=== PATIENT | female | born 1970 | race Asian ===

== ENCOUNTER 2019-11-13 11:49 | Emergency (ER) | payer OTHER ==
[~2019-11-13] VITALS: Ht 160 cm; Wt 74.8 kg
[2019-11-13 14:15] VITALS: BP 124/76; TEMP 97.9
== END 2019-11-13 14:35 | disposition home or self-care (01) ==
LOC: ED 11:49
DX: J10.1 Influenza due to other identified influenza virus with other respiratory manifestations (principal); R05 Cough
CPT/HCPCS: 87502; 87651; 99283

== ENCOUNTER 2020-11-24 12:03 | Emergency (ER) | payer OTHER ==
[~2020-11-24] VITALS: Ht 160 cm; Wt 74.8 kg
[2020-11-24 12:20] VITALS: TEMP 98.6
[2020-11-24 13:08] LABS: PLATELET COUNT 258 K/uL (152-353)
[2020-11-24 13:18] LABS: POTASSIUM 3.2 mmol/L (3.6-5.2)
[2020-11-24 14:50] VITALS: BP 153/93
== END 2020-11-24 14:50 | disposition home or self-care (01) ==
LOC: ED 12:03
PROVIDERS: Hospitalist
DX: U07.1 COVID-19 (principal); J06.9 Acute upper respiratory infection, unspecified; E87.6 Hypokalemia
CPT/HCPCS: 80053; 85027; 87502; 87651; 96374; 96375; 99284; J1100; J1642; J1885

== ENCOUNTER 2020-12-05 16:54 | Inpatient (IN) | payer OTHER ==
[~2020-12-05] VITALS: Ht 160 cm; Wt 71.9 kg
[2020-12-05] VITALS (7 sets, daily range): BP systolic 114–148; BP diastolic 68–88; TEMP 98.8–103.3; Ht 160 cm; Wt 71.9 kg
[2020-12-05 17:51] LABS: PLATELET COUNT 195 K/uL (152-353)
[2020-12-05 17:54] LABS: POTASSIUM 3.5 mmol/L (3.6-5.2)
--- NOTE | 2020-12-05 22:54 | NUR ---
PATIENT STATES SHE WAS TESTED AND HAD COVID APROX 2 WEEIKS AGO. I ASKED HER WHEN SHE STARTED FEELING "WORSE" AGAIN AND SHE REPLIED YESTERDAY (12/04/20). SHE REPOETED NAUSEA, FEVER , AND SYNCOPHY. THE PATIENT TODAY REPORTS JOINT PAIN ESPECALLY IN HER RT SHOLD AND REPORTS NO PREVIOUS INJURY THERE. THE PAIN ALSO REPORTS SHE HAS HAD SYNCOPAL EPISODES TO DAY AND NAUSEA AND FEVER. THE PATIENT WAS TREATED FOR FEVER IN THE ER AND THE PATIENT DENIES ANY NAUSEA NOW.
--- NOTE | 2020-12-05 23:03 | NUR ---
PATIENT STATES SHE DOESNT KNOW HER HOME MEDICATION BY HEART AND DOESNT HAVE A LIST BUT HER PHARMACY IS [facility] HERE IN [place]
--- NOTE | 2020-12-05 23:06 | NUR ---
PATIENT TEMP UPON HER ER VISIT WAS 103 BUT SHE RECIEVED 1000MG OF TYEANOL AND WHEN I DID HER ASSESMENT AT 1945 IT WAS 100.1. THE PATIETN WAS VERY LETHARGIC AT THIS PONT AND FALLING ASLEEP DURING THE ASSESMENT. I PREFORMED NEURO CHECKS AND SHE WAS WNL. I JUST CHECKED HER TEMP AGAIN AT 2200 AND THE PATIENT TEMP WAS 98.4. THE PATIENT IS STILL "SLEEPY' BUT MORE COHERANT.
[2020-12-06 03:55] VITALS: BP 117/79; TEMP 98.3
--- NOTE | 2020-12-06 04:39 | NUR ---
PATIENT HAS EXPRESSED HER "ANXITY HAS LESSENED AND SHE HAS BEEN ABLE TO SLEEP MUCH BETTER TONIGHT"
--- NOTE | 2020-12-06 05:46 | NUR ---
PATIENT GOWN WAS REPLACED, SHE SWEATED THE OTHER THROUGH PATIENT STATES," THIS IS THE BEST NIGHTS SLWWP IV HAD IN THREE DAYS"
--- NOTE | 2020-12-06 05:50 | NUR ---
PATIENT HAS BECOME MUSH LESS LETHARGIC. PATIENT IS NOW ABLE TO AMBULATE TO THE BR WITH NO TROUBLE. SHE IS NO LONGER CONFUSED
[2020-12-06 08:00] VITALS: BP 138/82; TEMP 98.2
--- NOTE | 2020-12-06 10:08 | NUR ---
12/06/2020 1000 PT EAT 75 PERCNET OF BREAKFAST ALERT ORIENTED NO C/O VOICED AT THIS TIME.CALL LIGHT WITHIN REACH.T.V. REMOTE PROVIDED PT WANTS TO WATCH T.V.CC
[2020-12-06] MEDS ORDERED: ESZOPICLONE1 MG PO (10:11)
[2020-12-06] MEDS ORDERED: DULOXETINE HCL30 MG PO (10:14)
[2020-12-06] MEDS ORDERED: BUTAL/APAP1 TAB PO (10:18)
[2020-12-06] MEDS ORDERED: PROPRANOLOL20 MG PO (10:19)
[2020-12-06] MEDS ORDERED: METHO2.5 PO (10:21)
[2020-12-06] MEDS ORDERED: OMEPRAZOLE DR40 MG PO (10:22)
[2020-12-06] MEDS ORDERED: VITAMIN D-31000 UNI1 PO (10:25)
[2020-12-06] MEDS ORDERED: ATEN25TA21 PO (10:26)
[2020-12-06] MEDS ORDERED: AROMASIN25 MG PO (10:30)
[2020-12-06] MEDS ORDERED: [UNRECOGNIZED DRUG - OTHER] PO (10:31)
[2020-12-06] MEDS ORDERED: PILOCARPINE5 MG PO (10:34)
[2020-12-06] MEDS ORDERED: PAROXETINE20 MG PO (10:36)
[2020-12-06] MEDS ORDERED: TIZANIDINE HYDRO2 MG PO (10:41)
[2020-12-06] MEDS ORDERED: BELBUCA450 MCG BU (10:43)
[2020-12-06] MEDS ORDERED: NARCAN4 MG/0.1 M NAS (10:45)
[2020-12-06] MEDS ORDERED: [UNRECOGNIZED DRUG - OTHER] PO (10:52)
--- NOTE | 2020-12-06 11:57 | NUR ---
12/06/2020 1150 PT SITTING UP IN BED TOLD HER WILL REVIEW HER MEDICATIONS IN ALITTLE WHILE.PT C/O SMALL AMOUNT OF NAUSEA NO VOMITING NOTED.CC
[2020-12-06 12:00] VITALS: BP 145/87; TEMP 99
--- NOTE | 2020-12-06 12:16 | NUR ---
12/06/2020 1215 LUNCH TRAY BROUGHT TO PATIENT ALSO SOME LINEN FOR BATH TO BATH OFF.CALL LIGHT WITHIN REACH.CC
--- NOTE | 2020-12-06 13:26 | NUR ---
12/06/2020 1315 WENT TO CHECK ON PATIENT HEART RATE ON TELE MONITOR SHOWS 135-148.PT STANDING AT SINK WASHING OFF AND BRUSHING TEETH.PT STATES SHE IS JUST REALLY TIRED IT GIVES HER OUT SINCE HAVING COVID.PT COMPARED IT TO HAVING BREAST CANCER 5 YEARS AGO.PT BACK TO BED LEADS CHECKED HR DECREASED TO 109 IMMEDIATELY,OXYGEN SATURATION 100 PERCENT.CALL LIGHT WITHIN REACH.CC
--- NOTE | 2020-12-06 13:39 | NUR ---
12/06/2020 1342 NOTIFIED OF PATIENT HEART RATE GOING TO 135-148 WHILE STANDING UP TO BATHE OFF.BUT HEART RATE CAME BACK DOWN AFTER GETTING BACK IN BED. STATES HE WILL BE CHECKING ON HOME MEDICATIONS.CC 12/06/2020 1346 HEART RATE ON TELE IS 112 WHILE PATIENT LYING DOWN IN BED.NO C/O PAIN OR DISTRESS NOTED AT THIS TIME TALKING WITH FAMILY M EMBERS ON PHONE.CALL LIGHT WITHIN REACH.CC
[2020-12-06 16:00] VITALS: BP 140/72; TEMP 99.2
[2020-12-06 19:42] VITALS: BP 142/76; TEMP 98.9
[2020-12-06 23:35] VITALS: BP 123/72; TEMP 98.9
[2020-12-07 04:11] VITALS: BP 128/65; TEMP 98.4
[2020-12-07 05:55] LABS: PLATELET COUNT 207 K/uL (152-353)
--- NOTE | 2020-12-07 06:09 | NUR ---
TAUGHT PATIENT HOW TO USE MDI AT BEDSIDE.
[2020-12-07 06:20] LABS: POTASSIUM 3.7 mmol/L (3.6-5.2)
--- NOTE | 2020-12-07 07:00 | NUR ---
REC'D REPORT FROM LIS ALVARADO RN.
--- NOTE | 2020-12-07 07:45 | NUR ---
PT UP AT SINK BRUSHING HER TEETH THIS AM. NO DISTRESS NOTED AT THIS TIME. PT REPORTS FEELING SOME BETTER PT STATES " I FEEL SOME BETTER, NOT GREAT, BUT SOME BETTER" PT'S V/S OBTAINED AT THIS TIME. PT DENIES ANY C/O OR NEEDS. WILL CON'T TO MONITOR PT.
[2020-12-07 08:00] VITALS: BP 123/80; TEMP 99.9
--- NOTE | 2020-12-07 09:15 | NUR ---
PT AM MEDS GIVEN AT THIS TIME. PT GIVEN BOTTLE OF WATER AND FRESH CUP OF ICE. PT REQUESTED A NEW GOWN AND SHEET FOR HER BED. OFFERED TO ASSIST PT WITH CHANGING SHEET AND GOWN. PT STATES "I THINK I CAN GET IT" INFORMED PT WHEN SHE GOT UP TO CHANGE GOWNS TO JUST CALL I WOULD COME CHANGE HE SHEET AND TAKE THE DIRTY LINENS. PT AGAIN STATES "OK, BUT I THINK I CAN GET IT I'LL CALL IF I NEED HELP " PT DENIES ANY C/O OR NEEDS. PT INFORMED TO CALL IF SHE FEELS LIKE SHE MAY NEED NAUSE MED. PT STATES "I THINK I'M JUST GOING TO GO TO SLEEP SO I WON'T GET SICK" REMINDED PT TO JUST CALL IF SHE FELT LIKE SHE NEEDED IT AND THAT I WOULD BE IN TO CHECK ON HER IF SHE WAS ASLEEP I WILL NOT WAKE HER UP. PT STATES "OK THANK YOU" INFORMED HER OF WHAT TIME HER NEXT MEDICATION IS DUE AND WHAT IT IS. PT STATES "OK THANK YOU" NO DISTRESS NOTED. WILL CON'T TO MONITOR PT.
--- NOTE | 2020-12-07 10:00 | NUR ---
PT UP IN BATHROOM AT THIS TIME.
--- NOTE | 2020-12-07 11:15 | NUR ---
IN TO CHECK ON PT. PT NOTED TO BE RESTING QUIETLY ON LEFT SIDE AT THIS TIME. TV ON. NAD NOTED. WILL CON'T TO MONITOR PT.
[2020-12-07 11:59] VITALS: BP 138/85; TEMP 99.1
--- NOTE | 2020-12-07 12:01 | NUR ---
IN TO OBTAIN PT'S V/S. PT NOTED TO BE TALKING ON THE PHONE. PT DENIES ANY C/O OF PAIN, NAUSEA, OR SOB.
--- NOTE | 2020-12-07 13:00 | NUR ---
IN TO GIVE PT LUNCH TRAY. PT LAYING IN BED ON LEFT SIDE. PT NOTED TO BE LETHARGIC. PT REPORTS JUST FEELING TIRED. WILL CON'T TO MONITOR PT.
--- NOTE | 2020-12-07 14:24 | NUR ---
PT C/O OF MUSCLE SPASMS IN HER BACK. PT STATES "I'M HAVING SPASMS IN MY BACK, I HAVE THEM BUT NOT NORMALLY THIS BAD I DON'T KNOW IF IT'S THE BED OR WHAT"
--- NOTE | 2020-12-07 14:30 | NUR ---
DR. DAVALOS NOTIFIED OF PT'S C/O OF MUSCLE SPASMS. REC'D ORDER TO CHANGE PT'S ZANAFLEX 1MG QHS TO ZANAFLEX Q8HRS PRN MUSCLE SPASMS.
--- NOTE | 2020-12-07 14:40 | NUR ---
DR. DAVALOS AT PT'S BEDSIDE.
[2020-12-07 16:00] VITALS: BP 152/84; TEMP 99.5
--- NOTE | 2020-12-07 17:00 | NUR ---
PT LAYING IN BED RESTING. PT REPORTS FEELING "YUCKY". PT NOTED TO BE LETHARGIC AT THIS TIME. WILL CON'T TO MONITOR PT.
--- NOTE | 2020-12-07 17:05 | NUR ---
PT REFUSED HER PILOCARPINE STATING "I'M NOT GOING TO TAKE THAT, THAT'S JUST FOR DRY MOUTH AND I DON'T NEED IT RIGHT NOW" PT ALSO REFUSED HER METHOTREXATE STATING "I'VE ALREADY TAKEN MY 8 PILLS FOR THE WEEK" DR. DAVALOS NOTIFIED.
--- NOTE | 2020-12-07 18:25 | NUR ---
PT RESTING QUIETLY ON LEFT SIDE WITH EYES CLOSED. NAD NOTED.
--- NOTE | 2020-12-07 19:45 | NUR ---
PT IS RESTING IN BED WITH NO ACUTE DISTRESS NOTED AT THIS TIME. PLEASANT TONE AT PRESNT, VOICED NO C/O PAIN NOR DISCOMFORT AT THIS TIME WILL CONTINUE TO MONITOR.
[2020-12-07 20:00] VITALS: BP 154/94; TEMP 99.6
--- NOTE | 2020-12-07 21:00 | NUR ---
PT HAS C/O GENERALIZED PAIN AT THIS TIME ALSO REQUESTED TO TAKE A SHOWER AND HAVE PERSONAL LINENS CHANGED BEFORE TAKING ANY NIGHT TIME MEDICATION. GAS WELDING MACHINE OPERATOR VOICED UNDERSTANDING WITH SHOWER AND LINEN CHANGES COMPLETE AT THIS TIME.
--- NOTE | 2020-12-07 22:30 | NUR ---
PT HAS DENIED ANY C/O PAIN AT THIS TIME WILL CONTINUE TO MONITOR.
--- NOTE | 2020-12-07 23:00 | NUR ---
PT IS RESTING IN BED WITH NO ACUTE DISTRESS NOTED. SHE STATED, "I'M NOT FEELING THE BEST BUT I WILL BE ALRIGHT, I'VE BEEN LIKE THIS ALL DAY LONG."
[2020-12-08] VITALS: BP 129/65; TEMP 98.9
[2020-12-08 04:00] VITALS: BP 152/84; TEMP 98.9
--- NOTE | 2020-12-08 06:33 | NUR ---
PORT A CATH ACCESS ATTEMPTED X4 WITH MINIMAL BLOOD RETURN OBTAINED. 2ML'S OF HEPARIN WAS FLUSHED TO CLEAR THE LINE. POST ADMINISTRATION NO BLOOD RETURN WAS OBTAINED. PT REFUSED TO ALLOW STAFF TO ACCESS A PERIPHERAL IV SITE TO DRAW BLOOD WORK. WHEN OFFERED TO REACCESS THE PORT SHE STATED, "CAN WE DO IT LATER TODAY, I'VE BEEN POKED ENOUGH." GENERAL DENTIST VOICED UNDERSTANDING AND RESPECTED THE PATIENTS WISHES. NO ACUTE DISTRESS NOTED.
--- NOTE | 2020-12-08 07:00 | NUR ---
REC'D REPORT FROM WHITNEY MANCILLA LPN. PT REFUSED MEDS LAST NIGHT. PT VOMITED, ORDER FOR ZOFRAN GIVEN PER LAYTON OLSON. UNABLE TO OBTAIN LABS FROM PT'S PORT PER LAYTON OLSON AND LEYLA CHANEL RN.
[2020-12-08 07:47] VITALS: BP 128/93; TEMP 99.4
--- NOTE | 2020-12-08 07:55 | NUR ---
PT REPORTS CON'T TO BE NAUSEATED. PT NOTED TO BE LAYING IN BED ON LEFT SIDE. PT NOTED TO BE LETHARGIC ON ASSESSMENT. PT'S PORT FLUSHED AND AM LABS OBTIANED VIA PT'S PORT. WILL CON'T TO MONITOR PT.
--- NOTE | 2020-12-08 08:10 | NUR ---
PT REQUESTS TO WAIT A LITTLE WHILE BEFORE TAKING HER AM MEDS TO SEE IF NAUSEA GOES AWAY.
[2020-12-08 08:29] LABS: PLATELET COUNT 253 K/uL (152-353)
[2020-12-08 08:31] LABS: POTASSIUM 3.3 mmol/L (3.6-5.2)
--- NOTE | 2020-12-08 09:35 | NUR ---
IN TO GIVE PT AM MEDS. PT CON'T TO C/O NAUSEA. PT REQUESTS SOMETHING ELSE FOR NAUSEA AND SOME ICE AND WATER. PT GIVEN FRESH ICE AND WATER. DR. DAVALOS NOTIFIED OF PT'S C/O OF NAUSEA AND INFORMED THAT SHE HAD ZOFRAN AT 0630. REC'D NEW ORDER FOR PHENERGAN 25MG PO Q6HR PRN NAUSEA.
[2020-12-08] MEDS ORDERED: [UNRECOGNIZED DRUG - OTHER] PO (09:51)
[2020-12-08] MEDS ORDERED: LYRICA100 MG PO (09:51)
[2020-12-08 11:46] VITALS: BP 141/97; TEMP 98.5
--- NOTE | 2020-12-08 11:51 | NUR ---
PT RESTING QUIETLY ON LEFT SIDE AT THIS TIME. NO DISTRESS NOTED. WILL CON'T TO MONITOR PT.
--- NOTE | 2020-12-08 13:39 | NUR ---
PT NOTED TO BE LAYING ON HER LEFT SIDE RESTING QUIETLY AT THIS TIME WITH EYES CLOSED. BREATHING NOTED TO BE EVEN AND UNLABORED. NO DISTRESS NOTED.
--- NOTE | 2020-12-08 14:29 | NUR ---
PT RESTING QUIETLY WITH EYES CLOSED ON LEFT SIDE. BREATHING NOTED TO BE EVEN AND UNLABORED. WILL CON'T TO MONITOR PT.
[2020-12-08 15:56] VITALS: BP 132/86; TEMP 99.1
[2020-12-08 20:00] VITALS: BP 78/52; TEMP 99.2
--- NOTE | 2020-12-08 20:15 | NUR ---
ENTERED PATIENT'S ROOM AT THIS TIME. UPON ASSESSMENT, PATIENT IS NOTED TO BE LETHARGIC/DROWSY. SHE DID AROUSE TO HER NAME BEING CALLED AND ANSWERED A FEW QUESTIONS, BUT DOZED BACK OFF. LEVAQUIN INFUSING INTO PORT TO RIGHT CHEST WALL. NO SWELLING OR TENDERNESS NOTED. PREVIOUS SHIFT DID GIVE PATIENT ZANAFLEX AND PHENERGAN AROUND 1740. PATIENT'S RESPIRATIONS ARE EVEN AND UNLABORED. BED LOCKED AND IN LOWEST POSITION. CALL LIGHT WITHIN EASY REACH.
--- NOTE | 2020-12-08 20:20 | NUR ---
PCT NOTIFIED ME THAT PATIENT'S B/P WAS 77/42 ON THE MACHINE AND 78/52 MANUALLY IN THE LEFT ARM WHILE LYING SUPINE. DR. LEMUS, ER PHYSICIAN, CALLED AT 2031. ORDERS GIVEN AT THIS TIME FOR 1L OF NORMAL SALINE BOLUS. READ BACK AND VERIFIED BY DR. LEMUS.
--- NOTE | 2020-12-08 21:00 | NUR ---
ENTERED PATIENT'S ROOM. SHE IS MORE ALERT AT THIS TIME AND ANSWERING QUESTIONS. SHE DID NOT REMEMBER THE FIRST ENCOUNTER WHEN THIS ASSISTANT CORPORATE SECRETARY ENTERED HER ROOM. INFORMED HER THAT HER B/P WAS LOW AND OF MD ORDERS FOR ONE LITER OF NS. HOB LOWERED AND FOOT OF BED ELEVATED AT THIS TIME. WILL CONTINUE TO MONITOR AND RE-ASSESS BLOOD PRESSURE.
--- NOTE | 2020-12-08 21:20 | NUR ---
THIS SPIKE MAKER ENTERED ROOM TO RECHECK PATIENT'S B/P. PATIENT RESTING QUIETLY WITH EYES CLOSED. B/P CHECKED WITH MACHINE IN LLE- BP WAS 94/56. IN LUE- 84/55. THIS SPIKE MAKER DID MAKE ONE ATTEMPT TO ACCESS ANOTHER IV SITE. ATTEMPT WAS UNSUCCESSFUL- PATIENT'S VEIN BLEW AFTER FLASHBACK OBTAINED. B/P DID INCREASE. BED LOCKED AND IN LOWEST POSIION. CALL LIGHT WITHIN EASY REACH.
--- NOTE | 2020-12-08 22:03 | NUR ---
B/P IN LUE WAS 103/68 AT THIS TIME. PATIENT STILL IN SLIGHT [place] POSITION. BOLUS OF NS STARTED AT THIS TIME. RATE IS 999ML/HR. PATIENT RESTING QUIETLY WITH EYES CLOSED. RESPIRATIONS EVEN AND UNLABORED. CALL LIGHT WITHIN EASY REACH.
[2020-12-09] VITALS (7 sets, daily range): BP systolic 112–151; BP diastolic 70–90; TEMP 97.7–100.1
--- NOTE | 2020-12-09 01:15 | NUR ---
PATIENT RESTING QUIETLY IN BED WITH EYES CLOSED. RESPIRATIONS EVEN AND UNLABORED. NAD NOTED AT THIS TIME. BED LOCKED AND IN LOWEST POSITION. CALL LIGHT WITHIN EASY REACH.
--- NOTE | 2020-12-09 04:30 | NUR ---
IN TO DRAW BLOOD FROM PORT FOR AM LABS. FOUR FAST SALINE FLUSHES USED THEN BLOOD RETURN COULD BE OBTAINED. PATIENT TOLERATED WELL. PORT TO RIGHT CHEST SALINE LOCKED AT THIS TIME. BED LOCKED AND IN LOWEST POSITION. CALL LIGHT WITHIN EASY REACH.
[2020-12-09 05:24] LABS: PLATELET COUNT 252 K/uL (152-353)
[2020-12-09 05:41] LABS: POTASSIUM 3.5 mmol/L (3.6-5.2)
--- NOTE | 2020-12-09 05:55 | NUR ---
IN TO GIVE PATIENT AM PROTONIX. PT STATES THAT THIS MEDICATION MAKES HER NAUSEOUS. SHE ASKED FOR SOMETHING FOR NAUSEA. THIS PRECIPITATOR OPERATOR EXPLAINED THAT THE PHENERGAN COULD CAUSE DROWSINESS, AND SHE DID NOT WANT TO SLEEP ALL DAY. SHE DECLINED TAKING EITHER MEDICATION AT THIS TIME. NOW RESTING QUIETLY IN BED WITH EYES CLOSED. NAD NOTED. CALL LIGHT WITHIN EASY REACH.
--- NOTE | 2020-12-09 19:40 | NUR ---
PO MEDS GIVEN AT THIS TIME, PT TOLERATED WELL, REACTIVE TO VERBAL AND SENSORY STIMULI AND ENGAGED IN CONVERSATION. PT SEEMS TO BE IN NO ACUTE DISTRESS AT THIS TIME.
--- NOTE | 2020-12-09 23:00 | NUR ---
PT RESTING QUIETLY IN BED. PT SEEMS TO BE IN DISTRESS, SIDE RAILS UP TIMES THREE, AND BED IN LOEST POSITION.
--- NOTE | 2020-12-10 01:21 | NUR ---
PT C/O MUSCLE SPASMS INTERFERRING WITH HER SLEEP SHE HAS SINCE REQUESTED FOR HER PRN ZANAFLEX TO BE ADMINSTERED. CHISEL GRINDER HAS SINCE ADMINISTERED WITH THE PATIENT DISPLAYING NO ACUTE DISTRESS UPON ENTRY INTO THE ROOM. WILL CONTINUE TO MONITOR FOR HEALTH STATUS CHANGES.
[2020-12-10 03:52] VITALS: BP 113/68; TEMP 98.8
--- NOTE | 2020-12-10 04:30 | NUR ---
EZEQUIEL BLOOD FROM PORT A CATH FOR LAB. PT TOLERATED WELL AND WAS RESTING QUIETLY, SIDE RAILS TIMES THREE, AND BED IN LOWEST POSITION. PT SEEMS TO BE IN NO DISTRESS AT THIS TIME.
--- NOTE | 2020-12-10 04:36 | NUR ---
PORT ACCESSED AND BLOOD GIVEN TO LAB. PORT FLUSHED AND SITE CLEAN DRY INTACT
[2020-12-10 05:07] LABS: POTASSIUM 3.7 mmol/L (3.6-5.2)
[2020-12-10 05:24] LABS: PLATELET COUNT 291 K/uL (152-353)
[2020-12-10 08:00] VITALS: BP 132/79; TEMP 98.8
--- NOTE | 2020-12-10 08:45 | NUR ---
PATIENT RESTING IN BED. NAD NOTED. SHIFT ASSESSMENT COMPLETED AND MORNING MEDICATIONS GIVEN. PATIENT TOLERATED WELL. PATIENT EXPRESSED READINESS TO GO HOME BUT CONCERN FOR ELEVATED TEMPERATURES. PATIENT CURRENT TEMP 98.8F. WILL CONTINUE TO MONITOR.
--- NOTE | 2020-12-10 09:00 | NUR ---
PATIENT UPDATE GIVEN TO FAMILY MEMBER NEISHA MOBLEY.
[2020-12-10 12:06] VITALS: BP 136/85; TEMP 99.1
--- NOTE | 2020-12-10 13:00 | NUR ---
DAYSI LINK SPOKE WITH DR. DAVALOS ABOUT POSSIBLE DISCHARGE. DR. DAVALOS INSTRUCTED TO GIVE REMDESIVIR AT 1500 INSTEAD OF 1700.
--- NOTE | 2020-12-10 13:30 | NUR ---
DR. DAVALOS IN TO SEE PATIENT.
--- NOTE | 2020-12-10 15:41 | NUR ---
URINE SPECIMEN COLLECTED FROM PATIENT. SPECIMEN DELIVERED TO LAB.
[2020-12-10 16:00] VITALS: BP 157/88; TEMP 99.4
--- NOTE | 2020-12-10 17:26 | NUR ---
DISCHARGE ORDERS RECIEVED FROM DR. DAVALOS. PORT HEPARIN LOCKED. PORT ACCESS DISCONTINUED. TELEMETRY DISCONTINUED.
--- NOTE | 2020-12-10 18:00 | NUR ---
PATIENT DISCHARGE TO HOME VIA PERSONAL VEHICLE WITH SON DRIVING.
--- NOTE | 2020-12-12 15:47 | NUR ---
i have zayra redmond w/ pcp Arely Rbuio NP ph [phone] fx [phone], appt 12/16/20 @ 11:30am and have faxed DC summary.
== END 2020-12-10 17:55 | disposition home or self-care (01) | DRG 177 ==
LOC: ED 16:54 → MED/SURG 18:25
PROVIDERS: Emergency Medicine Emergency Medical Services; ADMIT Internal Medicine Endocrinology, Diabetes & Metabolism; ATTEND Internal Medicine Endocrinology, Diabetes & Metabolism
DX: U07.1 COVID-19 (principal); J12.89 Other viral pneumonia; M06.8A Other specified rheumatoid arthritis, other specified site; E87.6 Hypokalemia; I10 Essential (primary) hypertension; G89.4 Chronic pain syndrome; F41.8 Other specified anxiety disorders; R50.9 Fever, unspecified; Z85.3 Personal history of malignant neoplasm of breast
CPT/HCPCS: 36415; 36591; 80053; 81000; 82728; 83605; 85027; 85379; 87040; 87502; 87635; 96360; 96365; 96367; 96372; 96375; 99284; J0456; J0696; J1100; J1642; J1650; J1956; J2060; J2270; J2405; J8610; U0003

== ENCOUNTER 2021-03-07 20:30 | Emergency (ER) | payer OTHER ==
[~2021-03-07] VITALS: Ht 160 cm; Wt 71.7 kg
[~2021-03-07 20:30] MED LIST: AROMASIN25 MG PO; ATEN25TA21 PO; BELBUCA450 MCG BU; BUTAL/APAP1 TAB PO; DULOXETINE HCL30 MG PO; ESZOPICLONE1 MG PO; LYRICA100 MG PO; METHO2.5 PO; NARCAN4 MG/0.1 M NAS; OMEPRAZOLE DR40 MG PO; PAROXETINE20 MG PO; PILOCARPINE5 MG PO; PROPRANOLOL20 MG PO; TIZANIDINE HYDRO2 MG PO; VITAMIN D-31000 UNI1 PO; [UNRECOGNIZED DRUG - OTHER] PO; [UNRECOGNIZED DRUG - OTHER] PO
[2021-03-08 00:12] VITALS: BP 164/90; TEMP 98.3
== END 2021-03-08 00:12 | disposition home or self-care (01) ==
LOC: ED 20:30
DX: G43.909 Migraine, unspecified, not intractable, without status migrainosus (principal); L50.8 Other urticaria; Z63.4 Disappearance and death of family member
CPT/HCPCS: 96372; 96374; 96375; 99284; J0360; J1200; J1642; J2270; J2405; J2930; J3030

== ENCOUNTER 2022-06-19 07:51 | Emergency (ER) | payer OTHER ==
[~2022-06-19] VITALS: Ht 160 cm; Wt 64.4 kg
[2022-06-19 08:05] VITALS: TEMP 98
[2022-06-19 09:01] LABS: PLATELET COUNT 214 K/uL (152-353)
[2022-06-19 09:11] LABS: POTASSIUM 3.6 mmol/L (3.6-5.2)
[2022-06-19] MEDS ORDERED: PANTOPRAZOLE 40MG TA PO (10:37)
[2022-06-19 10:57] VITALS: BP 156/88
== END 2022-06-19 10:59 | disposition home or self-care (01) ==
LOC: ED 07:51
PROVIDERS: Emergency Medicine Emergency Medical Services
DX: R10.12 Left upper quadrant pain (principal)
CPT/HCPCS: 36415; 80053; 81002; 82150; 83690; 84484; 85027; 93005; 96360; 96374; 96375; 99284; J1642; J1885; J2270; J2405; J3490

== ENCOUNTER 2022-07-21 07:55 | Emergency (ER) | payer OTHER ==
[~2022-07-21] VITALS: Ht 160 cm; Wt 64.4 kg
[~2022-07-21 07:55] MED LIST changes: +PANTOPRAZOLE 40MG TA PO
[2022-07-21] MEDS ORDERED: TAMIFLU75 MG PO ×2 (09:06)
[2022-07-21 09:45] VITALS: BP 140/77
== END 2022-07-21 09:45 | disposition home or self-care (01) ==
LOC: ED 07:55
DX: J10.1 Influenza due to other identified influenza virus with other respiratory manifestations (principal)
CPT/HCPCS: 87502; 87651; 99282

== ENCOUNTER 2022-07-21 09:43 | Outpatient (CLI) | payer OTHER ==
[~2022-07-21 09:43] MED LIST changes: +TAMIFLU75 MG PO
== END 2022-07-21 19:20 | disposition home or self-care (01) ==
LOC: RAD 09:43
PROVIDERS: ATTEND Nurse Practitioner Family
DX: M06.4 Inflammatory polyarthropathy (principal); Z68.26 Body mass index [BMI] 26.0-26.9, adult

== ENCOUNTER 2022-10-16 10:59 | Outpatient (CLI) | payer OTHER | END 2022-10-16 19:00 | disposition home or self-care (01) | LOC: RAD 10:59 | PROVIDERS: ATTEND Nurse Practitioner Family | DX: M06.4 Inflammatory polyarthropathy (principal); M25.551 Pain in right hip; M25.552 Pain in left hip; M54.51 Vertebrogenic low back pain ==

== ENCOUNTER 2023-05-31 08:49 | Emergency (ER) | payer OTHER ==
[~2023-05-31] VITALS: Ht 157.5 cm; Wt 74.4 kg
[~2023-05-31 08:49] MED LIST changes: +CYPROHEPTADINE H4 MG PO; +HYZAAR1 TA2 PO; +IPRAAER INH; +METHOCARBAMOL PO; +NAPROXEN EC500 MG PO; +PAXLOVID 20 X 11 TAB PO; +PULMICORT180 MCG/AC INH
[2023-05-31 10:37] VITALS: BP 152/89; TEMP 98.1
== END 2023-05-31 10:37 | disposition home or self-care (01) ==
LOC: ED 08:49
DX: S39.012A Strain of muscle, fascia and tendon of lower back, initial encounter (principal); M54.30 Sciatica, unspecified side
CPT/HCPCS: 96372; 99283; J1100; J1885; J2360

== ENCOUNTER 2023-11-29 09:04 | Observation (INO) | payer OTHER ==
[2023-11-29] VITALS (8 sets, daily range): BP systolic 127–172; BP diastolic 79–103; TEMP 98–98.6; Ht 157.5 cm; Wt 78.6 kg
[~2023-11-29] VITALS: Ht 157.5 cm; Wt 78.6 kg
[2023-11-29 09:39] LABS: PLATELET COUNT 245 K/uL (152-353)
[2023-11-29 09:50] LABS: POTASSIUM 3.4 mmol/L (3.6-5.2); SODIUM 138 mmol/L (136-145)
[2023-11-29] MEDS ORDERED: NITROGLYCERIN 1 GM OIN TOP ONE (10:37)
[2023-11-29] MEDS ORDERED: ASPIRIN 81MG CHEW TAB PO ONE (10:38)
[2023-11-29] MEDS ORDERED: ASPIRIN 81MG CHEW TAB ONE (10:41)
[2023-11-29] MEDS ORDERED: NITROGLYCERIN 1 GM OIN ONE (10:41)
[2023-11-29] MEDS ORDERED: MORPHINE SULFATE 2 MG ML IV PRN (13:00)
[2023-11-29] MEDS ORDERED: Ondansetron HCl 4 MG INJ IVP PRN (13:00)
[2023-11-29] MEDS ORDERED: POTASSIUM CHL 20 MEQ TAB PO SCH (13:00)
[2023-11-29] MEDS ORDERED: PANTOPRAZOLE 40MG TA PO (13:27)
[2023-11-29] MEDS ORDERED: PRENATAL PO (13:28)
[2023-11-29] MEDS ORDERED: [UNRECOGNIZED DRUG - OTHER] PO (13:28)
[2023-11-29] MEDS ORDERED: HAIR SKIN PO (13:28)
[2023-11-29] MEDS ORDERED: CENTRUM SILVER1 TA1 PO (13:28)
[2023-11-29] MEDS ORDERED: HYDRALAZINE HCL 10 MG IVP PRN (14:50)
[2023-11-29] MEDS ORDERED: HYDRALAZINE HCL 20 MG INJ IVP PRN (15:30)
[2023-11-29] MEDS ORDERED: ACETAMINOPHEN 650 MG SUP RE PRN (16:09)
[2023-11-29] MEDS ORDERED: ACETAMINOPHEN 325 MG TAB PO PRN (16:14)
[2023-11-29] MEDS ORDERED: HYDROCHLOROTHIAZIDE 25 MG TAB PO SCH (17:00)
[2023-11-29] MEDS ORDERED: LOSARTAN 50 MG TAB PO SCH (17:00)
[2023-11-29] MEDS ORDERED: NITROGLYCERIN 1 GM OIN TOP SCH (17:00)
[2023-11-29] MEDS ORDERED: CYPROHEPTADINE HCL 4 MG TAB PO SCH (21:00)
[2023-11-30] VITALS: BP 122/75; TEMP 97.4
[2023-11-30 03:03] VITALS: BP 122/88; TEMP 97.4
[2023-11-30 04:00] VITALS: BP 1314/89; TEMP 97.6
[2023-11-30 04:46] LABS: PLATELET COUNT 252 K/uL (152-353)
[2023-11-30 04:57] LABS: POTASSIUM 3.4 mmol/L (3.6-5.2)
[2023-11-30 08:00] VITALS: BP 152/91; TEMP 97.6
[2023-11-30] MEDS ORDERED: ASPIRIN 325 MG TAB PO SCH (09:00)
[2023-12-01] MEDS ORDERED: PANTOPRAZOLE SODIUM 40 MG TAB PO SCH (17:00)
[2023-12-01] MEDS ORDERED: ENOXAPARIN SODIUM 40 MG SC SCH (17:00)
== END 2023-11-30 09:07 | disposition home or self-care (01) ==
LOC: ED 09:04 → MED/SURG 11:35
PROVIDERS: ADMIT Internal Medicine Endocrinology, Diabetes & Metabolism; ATTEND Internal Medicine Endocrinology, Diabetes & Metabolism
DX: R07.89 Other chest pain (principal); I10 Essential (primary) hypertension; K21.9 Gastro-esophageal reflux disease without esophagitis; Z85.3 Personal history of malignant neoplasm of breast; E87.6 Hypokalemia; R06.02 Shortness of breath
CPT/HCPCS: 36415; 80048; 80053; 84484; 85027; 85379; 93005; 99221; 99283; G0378